=== PATIENT | male | born 1970 | race Caucasian/White ===

== ENCOUNTER 2018-12-28 15:55 | Emergency (ER) | payer OTHER ==
[~2018-12-28] VITALS: Ht 177.8 cm; Wt 65.0 kg
[2018-12-28 16:00] VITALS: Ht 177.8 cm; Wt 65.0 kg
[2018-12-28] MEDS ORDERED: SOD CHLORIDE 0.9% 1,000 ML IV STA (16:43)
[2018-12-28] MEDS ORDERED: DIPHENHYDRAMINE 50 MG INJ IV STA (16:43)
[2018-12-28] MEDS ORDERED: PROCHLORPERAZINE 10 MG INJ IV STA (16:43)
--- NOTE | 2018-12-28 16:43 | ERD ---
ER Documentation Chief Complaint Chief Complaint Complains of sore throat and vomiting x 2 days HPI This is a 48-year-old male patient presents emergency room with complaint of dizziness x1 day that began with sore throat 2 days ago, vomiting starting yesterday. No abdominal pain, no fever, no cough. No recent travel, no sick contacts. ROS All systems reviewed and are negative except as per history of present illness. Medications Home Meds Active Scripts Ondansetron (Ondansetron Odt) 4 Mg Tab.rapdis, 4 MG PO Q6H PRN for NAUSEA AND/OR VOMITING, #10 TAB Prov:TOBI JOYA TERRITORY REPRESENTATIVE 12/28/18 Meclizine Hcl* (Antivert*) 12.5 Mg Tab, 25 MG PO Q6H PRN for DIZZINESS, #10 TAB Prov:TOBI JOYA NP 12/28/18 Allergies Allergies: Coded Allergies: No Known Allergy (Unverified , 12/28/18) PMhx/Soc Medical and Surgical Hx: pt denies Medical Hx FmHx Family History: No diabetes, No coronary disease, No other Physical Exam Vitals Vital Signs Date Temp Pulse Resp B/P (MAP) Pulse Ox O2 O2 Flow FiO2 Time Delivery Rate 12/28/18 97.0 64 20 116/88 98 16:00 (97) Physical Exam Const: No acute distress Head: Atraumatic Eyes: Normal Conjunctiva, PERRL ENT: Normal External Ears, RM clear BL, no nasal discharge, pharynx pink, no lesions, no petechiae Neck: Full range of motion. No meningismus. No lymphadenopathy, no thyromegaly Resp: Clear to auscultation bilaterally, no rales or wheezing Cardio: Regular rate and rhythm, no murmurs Abd: Soft, non tender, non distended. Normal bowel sounds Skin: No petechiae or rashes Back: No midline or flank tenderness Ext: No cyanosis, or edema Neur: Awake and alert, CNII-XII intact, clear speech, slow steady gait, EOMI, +lateral nystagmus, +nausea with head movement, no pronator drift, equal smile, equal coordinator of health services Psych: Normal Mood and Affect Result Diagram: 12/28/18 1651 12/28/18 1651 Results 24 hrs Laboratory Tests Test 12/28/18 16:51 White Blood Count 6.5 10^3/ul Red Blood Count 5.93 10^6/ul Hemoglobin 18.2 g/dl Hematocrit 51.9 % Mean Corpuscular Volume 87.5 fl Mean Corpuscular Hemoglobin 30.7 pg Mean Corpuscular Hemoglobin Concent 35.1 g/dl Red Cell Distribution Width 12.4 % Platelet Count 243 10^3/UL Mean Platelet Volume 10.4 fl Immature Granulocytes % 0.300 % Neutrophils % 75.8 % Lymphocytes % 17.6 % Monocytes % 4.8 % Eosinophils % 0.9 % Basophils % 0.6 % Nucleated Red Blood Cells % 0.0 /100WBC Immature Granulocytes # 0.020 10^3/ul Neutrophils # 4.9 10^3/ul Lymphocytes # 1.1 10^3/ul Monocytes # 0.3 10^3/ul Eosinophils # 0.1 10^3/ul Basophils # 0.0 10^3/ul Nucleated Red Blood Cells # 0.0 10^3/ul Sodium Level 143 mmol/L Potassium Level 4.2 mmol/L Chloride Level 104 mmol/L Carbon Dioxide Level 28 mmol/L Anion Gap 11 Blood Urea Nitrogen 18 mg/dl Creatinine 1.00 mg/dl Est Glomerular Filtrat Rate mL/min > 60 mL/min Glucose Level 114 mg/dl Calcium Level 9.8 mg/dl Current Medications Medications Dose Sig/Kate Start Time Status Last (Trade) Ordered Route PRN Stop Time Admin Dose Reason Admin Sodium 1,000 ml @ Q1H STAT 12/28/18 DC 12/28/18 Chloride 1,000 mls/hr IV 16:43 17:11 12/28/18 17:42 10 mg ONCE STAT 12/28/18 DC 12/28/18 Prochlorperaz IV 16:43 17:11 ine 12/28/18 16:46 (Compazine Inj) 25 mg ONCE STAT 12/28/18 DC 12/28/18 Diphenhydrami IV 16:43 17:11 ne HCl 12/28/18 16:46 (Benadryl) Meclizine 25 mg ONCE ONCE 12/28/18 DC 12/28/18 HCl PO 18:00 18:12 (Antivert) 12/28/18 18:01 Procedures/MDM This is a 48-year-old male patient presents emergency room with complaint of nausea and dizziness since yesterday. ED COURSE: The patient was stable throughout ED course. I kept the patient and/or family informed of laboratory and diagnostic imaging results throughout the ED course. DIAGNOSTIC IMAGING: Not indicated MEDICATIONS GIVEN: Saline, Compazine, Benadryl 17:55-reevaluation shows patient stating his nausea has resolved, nystagmus has resolved, patient states he still feels some positional dizziness. Meclizine ordered. 18:58-and ambulating freely around the ER, patient states he is anxious to leave, nausea resolved, dizziness has improved. Given instructions on use of meclizine, Zofran, Charu maneuvers. MDM: The patient was well-appearing with VSS and without neurological deficits at time of reevaluation and discharge. Clinical and diagnostic exam not suggestive of infection, intracranial process, SAH, SDH, neoplasm, meningitis, encephalitis, aneurysm, thrombus, temporal arteritis, sinusitis. The patient has been provided with instructions on self-care including use of analgesia, reducing triggers, and need for close follow-up with primary care physician within 1-2 days for reevaluation. The patient has been instructed to return immediately for worsening symptoms, change in pattern of current symptoms, or other acute problems. DISPOSITION: The patient has been discharge home to follow-up with community physician. Departure Diagnosis: Primary Impression: BPPV (benign paroxysmal positional vertigo) Condition: Stable Patient Instructions: Benign Positional Vertigo Additional Instructions: Thank you very much for allowing us to participate in your care. Your health and safety is our top priority at [facility]. Call your primary care doctor TOMORROW for an appointment during the next 2-4 days and bring all the information and medications prescribed. Have prescriptions filled and follow precisely the directions on the label. If the symptoms get worse and your provider is unavailable, return to the Emergency Department immediately. TOBI JOYA NP December 28, 2018 16:43
[2018-12-28] MEDS ORDERED: MECLIZINE 12.5 MG TAB PO ONE (18:00)
[2018-12-28] MEDS ORDERED: ONDA4TAB14 PO (18:01)
[2018-12-28] MEDS ORDERED: MECL12.574 PO (18:01)
[2018-12-28 19:00] VITALS: BP 125/76; PULSE 77; RESP 18
== END 2018-12-28 19:09 | disposition home or self-care (01) ==
LOC: FTE 15:55
DX: H81.10 Benign paroxysmal vertigo, unspecified ear (principal); R11.10 Vomiting, unspecified
CPT/HCPCS: 80048; 85025; 96374; 96375; 99284; J0780; J1200; J7030